=== PATIENT | female | born 1935 | race Caucasian/White ===

== ENCOUNTER 2023-05-08 15:59 | Inpatient (IN) | payer OTHER ==
[~2023-05-08] VITALS: Ht 157.5 cm; Wt 61.2 kg
[2023-05-08 17:00] VITALS: BP_SYST 131; PULSE 72; RESP 18; TEMP 98.5; O2SAT 96
[2023-05-08] MEDS ORDERED: NACL 0.9% 1,000 ML IV ONE (17:15)
[2023-05-08 17:47] LABS: BASOPHILS # (AUTO) 0.1 K/uL (0.0-0.2); BASOPHILS % (AUTO) 0.3 % (0.0-2.0); HEMATOCRIT 38.5 % (36-48); HEMOGLOBIN 12.9 g/dL (12.0-16.0); LYMPHOCYTES % (AUTO) 5.5 % (20.5-51.5); MEAN CORPUSCULAR HEMOGLOBIN 27 pg (27-31); MEAN CORPUSCULAR HGB CONC 33 % (32-36); MEAN CORPUSCULAR VOLUME 82 fL (79.0-98.0); MONOCYTES # (AUTO) 0.6 K/uL (0.0-1.0); MONOCYTES % (AUTO) 3.6 % (1.7-9.3); NEUTROPHILS # (AUTO) 15.8 K/uL (1.8-7.7); NEUTROPHILS % (AUTO) 90.6 % (40.0-70.0); PLATELET COUNT (AUTO) 521 K/uL (130-430); RED BLOOD CELL COUNT(AUTO) 4.69 MIL/uL (4.2-6.2); RED CELL DISTRIBUTION WIDTH 17.8 % (9.0-15.0); WHITE BLOOD COUNT (AUTO) 17.5 K/uL (4.8-10.8)
[2023-05-08 18:09] LABS: ANION GAP 10 (5-15); CALCIUM 8.9 mg/dL (8.4-11.0); CARBON DIOXIDE 25 mmol/L (23-29); CHLORIDE 105 mmol/L (98-107); CREATININE 1.03 mg/dL (0.55-1.30); GLUCOSE 121 mg/dL (74-106); POTASSIUM 4.1 mmol/L (3.5-5.1); SODIUM SERUM 140 mmol/L (136-145); UREA NITROGEN, BLOOD 34 mg/dL (8-21)
[2023-05-08 20:00] LABS: ALBUMIN 3.5 g/dL (3.4-4.8); BILIRUBIN,DIRECT 0.1 mg/dL (0.0-0.3); TOTAL BILIRUBIN 0.4 mg/dL (0.0-1.0)
[2023-05-08] MEDS ORDERED: cefTRIAXone 1 GM in D5W 50 ML IV ONE (22:30)
[2023-05-08] MEDS ORDERED: cefTRIAXone 1 GM VIAL ONE (23:05)
[2023-05-08 23:54] LABS: BILIRUBIN,URINE NEGATIVE (NEGATIVE); BLOOD, URINE NEGATIVE (NEGATIVE); CLARITY/URINE CLEAR (CLEAR); COLOR,URINE YELLOW (YELLOW); GLUCOSE,URINE NEGATIVE (NEGATIVE); KETONES,URINE NEGATIVE (NEGATIVE); LEUKOCYTE ESTERASE ,URINE NEGATIVE (NEGATIVE); NITRITE, URINE NEGATIVE (NEGATIVE); PH,URINE 5.5 (5.0-8.0); PROTEIN URINE NEGATIVE (NEGATIVE); UROBILINOGEN,URINE 0.2 (0.2-1.0)
[2023-05-09] MEDS ORDERED: OLANZapine IntraMuscular 10 MG VIAL (FOR I.M. INJECTION ONLY) IM ONE (01:00)
[2023-05-09] MEDS ORDERED: LORazepam 2 MG/ML VIAL IVP ONE ×2 (01:00→01:30)
[2023-05-09] MEDS ORDERED: NACL 0.9% 1,000 ML IV SCH (03:30)
[2023-05-09] MEDS ORDERED: ANURH RC (05:46)
[2023-05-09] MEDS ORDERED: FURO-150 PO (05:46)
[2023-05-09] MEDS ORDERED: PEG15DRO12 LEFT EYE (05:46)
[2023-05-09] MEDS ORDERED: LACT10SO6 PO (05:46)
[2023-05-09] MEDS ORDERED: NOR10 PO (05:46)
[2023-05-09] MEDS ORDERED: PRED20TA PO (05:46)
[2023-05-09] MEDS ORDERED: MULT-1117 PO (05:46)
[2023-05-09] MEDS ORDERED: ACET325T PO (05:46)
[2023-05-09] MEDS ORDERED: DOCU-144 PO (05:46)
[2023-05-09] MEDS ORDERED: HYDR-3917 PO (05:46)
[2023-05-09] MEDS ORDERED: MELA5TAB12 PO (05:46)
[2023-05-09] MEDS ORDERED: PRED10TA PO (05:46)
[2023-05-09] MEDS ORDERED: MOM PO (05:46)
[2023-05-09] MEDS ORDERED: RIVA20TA PO (05:46)
[2023-05-09] MEDS ORDERED: LIP40 PO (05:46)
[2023-05-09] MEDS ORDERED: BISA10SU61 RC (05:46)
[2023-05-09] MEDS: HALOPERIDOL LACTATE 5 MG/ML VIAL IM PRN ×2 (07:17→15:56)
[2023-05-09] MEDS ORDERED: HYDROcodone/ACETAMIN 5-325 MG TAB (NORCO/ VICODIN) PO PRN (08:45)
[2023-05-09 09:57] LABS: ANION GAP 15 (5-15); CALCIUM 8.9 mg/dL (8.4-11.0); CARBON DIOXIDE 22 mmol/L (23-29); CHLORIDE 108 mmol/L (98-107); CREATININE 0.81 mg/dL (0.55-1.30); GLUCOSE 141 mg/dL (74-106); POTASSIUM 3.5 mmol/L (3.5-5.1); SODIUM SERUM 145 mmol/L (136-145); UREA NITROGEN, BLOOD 22 mg/dL (8-21)
[2023-05-09 10:05] LABS: BASOPHILS # (AUTO) 0.1 K/uL (0.0-0.2); BASOPHILS % (AUTO) 0.4 % (0.0-2.0); EOSINOPHILS # (AUTO) 0.1 K/uL (0.0-0.4); EOSINOPHILS % (AUTO) 0.3 % (0.0-4.0); HEMATOCRIT 39.2 % (36-48); HEMOGLOBIN 12.6 g/dL (12.0-16.0); LYMPHOCYTES # (AUTO) 4.2 K/uL (1.0-5.5); LYMPHOCYTES % (AUTO) 20.1 % (20.5-51.5); MEAN CORPUSCULAR HEMOGLOBIN 27 pg (27-31); MEAN CORPUSCULAR HGB CONC 32 % (32-36); MEAN CORPUSCULAR VOLUME 84 fL (79.0-98.0); MONOCYTES # (AUTO) 1.8 K/uL (0.0-1.0); MONOCYTES % (AUTO) 8.5 % (1.7-9.3); NEUTROPHILS # (AUTO) 14.7 K/uL (1.8-7.7); NEUTROPHILS % (AUTO) 70.7 % (40.0-70.0); PLATELET COUNT (AUTO) 439 K/uL (130-430); RED BLOOD CELL COUNT(AUTO) 4.66 MIL/uL (4.2-6.2); RED CELL DISTRIBUTION WIDTH 18.2 % (9.0-15.0); WHITE BLOOD COUNT (AUTO) 20.8 K/uL (4.8-10.8)
[2023-05-09 10:40] VITALS: BP_SYST 126; PULSE 74; RESP 18; TEMP 98.1; O2SAT 94
[2023-05-09 12:00] VITALS: BP_SYST 128; PULSE 75; RESP 16; TEMP 97.9; O2SAT 94
[2023-05-09] MEDS: amLODIPine BESYLATE 5 MG TABLET PO SCH (12:08)
[2023-05-09 13:55] VITALS: BP_SYST 126; PULSE 74; RESP 16; TEMP 98.1
[2023-05-09] MEDS ORDERED: predniSONE 10 MG TABLET PO ONE (15:15)
[2023-05-09] MEDS ORDERED: LORazepam 2 MG/ML VIAL IVP PRN (16:15)
[2023-05-09 16:31] VITALS: BP_SYST 127; PULSE 69; RESP 16; TEMP 97.5; O2SAT 96
[2023-05-09] MEDS: RIVAROXABAN 10 MG TABLET PO SCH (22:25)
[2023-05-10] VITALS (7 sets, daily range): BP systolic 126–148; PULSE 69–91; RESP 16–22; TEMP 97.2–98.2; O2SAT 95–98
[2023-05-10 05:20] LABS: BASOPHILS # (AUTO) 0.1 K/uL (0.0-0.2); BASOPHILS % (AUTO) 0.6 % (0.0-2.0); EOSINOPHILS # (AUTO) 0.1 K/uL (0.0-0.4); EOSINOPHILS % (AUTO) 0.5 % (0.0-4.0); HEMOGLOBIN 11.1 g/dL (12.0-16.0); LYMPHOCYTES # (AUTO) 3.3 K/uL (1.0-5.5); LYMPHOCYTES % (AUTO) 20.8 % (20.5-51.5); MEAN CORPUSCULAR HEMOGLOBIN 27 pg (27-31); MEAN CORPUSCULAR HGB CONC 33 % (32-36); MEAN CORPUSCULAR VOLUME 83 fL (79.0-98.0); MONOCYTES % (AUTO) 6.4 % (1.7-9.3); NEUTROPHILS # (AUTO) 11.3 K/uL (1.8-7.7); NEUTROPHILS % (AUTO) 71.7 % (40.0-70.0); PLATELET COUNT (AUTO) 422 K/uL (130-430); RED CELL DISTRIBUTION WIDTH 18.1 % (9.0-15.0); WHITE BLOOD COUNT (AUTO) 15.8 K/uL (4.8-10.8)
[2023-05-10 05:48] LABS: ANION GAP 9 (5-15); CALCIUM 8.6 mg/dL (8.4-11.0); CARBON DIOXIDE 25 mmol/L (23-29); CHLORIDE 110 mmol/L (98-107); CREATININE 0.59 mg/dL (0.55-1.30); GLUCOSE 84 mg/dL (74-106); POTASSIUM 3.5 mmol/L (3.5-5.1); SODIUM SERUM 144 mmol/L (136-145); UREA NITROGEN, BLOOD 16 mg/dL (8-21)
[2023-05-10] MEDS: predniSONE 10 MG TABLET PO SCH (09:10)
[2023-05-10] MEDS: amLODIPine BESYLATE 5 MG TABLET PO SCH (09:10)
[2023-05-10] MEDS: RIVAROXABAN 10 MG TABLET PO SCH (21:09)
[2023-05-11] VITALS (9 sets, daily range): BP systolic 113–142; PULSE 85–104; RESP 16–18; TEMP 97.8–98.8; O2SAT 95–96
[2023-05-11 05:00] LABS: BASOPHILS # (AUTO) 0.1 K/uL (0.0-0.2); BASOPHILS % (AUTO) 0.8 % (0.0-2.0); EOSINOPHILS # (AUTO) 0.1 K/uL (0.0-0.4); EOSINOPHILS % (AUTO) 0.7 % (0.0-4.0); HEMATOCRIT 35.7 % (36-48); HEMOGLOBIN 11.7 g/dL (12.0-16.0); LYMPHOCYTES # (AUTO) 3.8 K/uL (1.0-5.5); LYMPHOCYTES % (AUTO) 22.8 % (20.5-51.5); MEAN CORPUSCULAR HEMOGLOBIN 27 pg (27-31); MEAN CORPUSCULAR HGB CONC 33 % (32-36); MEAN CORPUSCULAR VOLUME 83 fL (79.0-98.0); MONOCYTES # (AUTO) 1.1 K/uL (0.0-1.0); MONOCYTES % (AUTO) 6.7 % (1.7-9.3); NEUTROPHILS # (AUTO) 11.4 K/uL (1.8-7.7); PLATELET COUNT (AUTO) 431 K/uL (130-430); RED BLOOD CELL COUNT(AUTO) 4.29 MIL/uL (4.2-6.2); RED CELL DISTRIBUTION WIDTH 18.4 % (9.0-15.0); WHITE BLOOD COUNT (AUTO) 16.5 K/uL (4.8-10.8)
[2023-05-11 05:14] LABS: ANION GAP 8 (5-15); CALCIUM 7.9 mg/dL (8.4-11.0); CARBON DIOXIDE 26 mmol/L (23-29); CHLORIDE 109 mmol/L (98-107); CREATININE 0.64 mg/dL (0.55-1.30); GLUCOSE 80 mg/dL (74-106); POTASSIUM 3.4 mmol/L (3.5-5.1); SODIUM SERUM 143 mmol/L (136-145); UREA NITROGEN, BLOOD 23 mg/dL (8-21)
[2023-05-11] MEDS: predniSONE 10 MG TABLET PO SCH (09:21)
[2023-05-11] MEDS: cefTRIAXone 1 GM in D5W 50 ML IV SCH (09:21)
[2023-05-11] MEDS: amLODIPine BESYLATE 10 MG TABLET PO SCH (09:21)
[2023-05-11] MEDS ORDERED: POTASSIUM CHLORIDE 20 MEQ TABLET.ER PO ONE (11:45)
[2023-05-11] MEDS: RIVAROXABAN 10 MG TABLET PO SCH (21:40)
[2023-05-12] VITALS (7 sets, daily range): BP systolic 110–130; PULSE 62–104; RESP 16–18; TEMP 97.1–98.5; O2SAT 92–99
[2023-05-12 05:43] LABS: BASOPHILS # (AUTO) 0.1 K/uL (0.0-0.2); BASOPHILS % (AUTO) 0.6 % (0.0-2.0); EOSINOPHILS # (AUTO) 0.2 K/uL (0.0-0.4); HEMATOCRIT 34.2 % (36-48); HEMOGLOBIN 11.2 g/dL (12.0-16.0); LYMPHOCYTES % (AUTO) 19.6 % (20.5-51.5); MEAN CORPUSCULAR HEMOGLOBIN 27 pg (27-31); MEAN CORPUSCULAR HGB CONC 33 % (32-36); MEAN CORPUSCULAR VOLUME 83 fL (79.0-98.0); MONOCYTES % (AUTO) 6.7 % (1.7-9.3); NEUTROPHILS % (AUTO) 72.1 % (40.0-70.0); PLATELET COUNT (AUTO) 386 K/uL (130-430); RED BLOOD CELL COUNT(AUTO) 4.15 MIL/uL (4.2-6.2); RED CELL DISTRIBUTION WIDTH 17.9 % (9.0-15.0); WHITE BLOOD COUNT (AUTO) 15.3 K/uL (4.8-10.8)
[2023-05-12 05:58] LABS: ANION GAP 8 (5-15); CALCIUM 8.6 mg/dL (8.4-11.0); CARBON DIOXIDE 25 mmol/L (23-29); CHLORIDE 109 mmol/L (98-107); CREATININE 0.75 mg/dL (0.55-1.30); GLUCOSE 98 mg/dL (74-106); SODIUM SERUM 142 mmol/L (136-145); UREA NITROGEN, BLOOD 26 mg/dL (8-21)
[2023-05-12] MEDS: cefTRIAXone 1 GM in D5W 50 ML IV SCH (08:40)
[2023-05-12] MEDS: amLODIPine BESYLATE 10 MG TABLET PO SCH (08:40)
[2023-05-12] MEDS: predniSONE 10 MG TABLET PO SCH (08:40)
[2023-05-12] MEDS ORDERED: POLYETHYLENE GLYCOL 3350, 17 GM/ POWD.PACK PO ONE (11:45)
[2023-05-12] MEDS ORDERED: SERT25TA PO (12:24)
[2023-05-12] MEDS ORDERED: LACTULOSE 20 GM/30 ML UDC PO ONE (12:45)
[2023-05-12] MEDS ORDERED: SERTRALINE HCL 50 MG TABLET PO ONE (12:45)
[2023-05-13] MEDS ORDERED: POLYETHYLENE GLYCOL 3350, 17 GM/ POWD.PACK PO SCH (09:00)
[2023-05-13] MEDS ORDERED: LACTULOSE 20 GM/30 ML UDC PO SCH (09:00)
[2023-05-13] MEDS ORDERED: SERTRALINE HCL 50 MG TABLET PO SCH (09:00)
== END 2023-05-12 18:45 | DRG 71 ==
LOC: SED 15:59 → SMU 05-09 03:00
PROVIDERS: ADMIT General Practice; ATTEND General Practice
DX: G93.41 Metabolic encephalopathy (principal); L12.0 Bullous pemphigoid; I48.91 Unspecified atrial fibrillation; F03.90 Unspecified dementia, unspecified severity, without behavioral disturbance, psychotic disturbance, mood disturbance, and anxiety; I10 Essential (primary) hypertension; D72.829 Elevated white blood cell count, unspecified; T38.0X5A Adverse effect of glucocorticoids and synthetic analogues, initial encounter; Y92.89 Other specified places as the place of occurrence of the external cause
CPT/HCPCS: 36415; 70450-TC; 71045; 76376; 80048; 80076; 81001; 81003; 82140; 83605; 83735; 83880; 84484; 85025; 87040; 87081; 87086; 93005; 96361; 96365; 99285; J0696; J1630; J2060; J3490; J7060; J7512